=== PATIENT | female | born 2000 | race African-American/Black ===

== ENCOUNTER 2023-09-05 06:34 | Day surgery (SDC) | payer OTHER ==
[~2023-09-05] VITALS: Ht 160 cm; Wt 62.1 kg
[~2023-09-05 06:34] MED LIST: CETI10CA13 PO; CONC36TA4 PO; MONT-5 PO; PROA1AER2 IN
[2023-09-05] MEDS ORDERED: LR 1,000 ML IV SCH ×2 (07:05→10:25)
[2023-09-05] MEDS ORDERED: SUGAMMADEX SODIUM 500 MG/5 ML VIAL (BRIDION) As Ordered ONE (09:37)
[2023-09-05] MEDS ORDERED: propofoL 200 MG/20 ML VIAL As Ordered ONE (09:37)
[2023-09-05] MEDS ORDERED: ACETAMINOPHEN 1000MG 100ML IV BAG As Ordered ONE (09:37)
[2023-09-05] MEDS ORDERED: MIDAZOLAM INJ 2MG/2ML VIAL As Ordered ONE (09:37)
[2023-09-05] MEDS ORDERED: ONDANSETRON 4MG 2ML VIAL As Ordered ONE (09:37)
[2023-09-05] MEDS ORDERED: dexmedeTOMIDine (4MCG/ML)200MCG/50ML BTL (PRECEDEX) As Ordered ONE (09:37)
[2023-09-05] MEDS ORDERED: fentaNYL 250 MCG/5 ML INJECTION As Ordered ONE (09:37)
[2023-09-05] MEDS ORDERED: ROCURONIUM BROMIDE 50MG/5ML VIAL As Ordered ONE (09:37)
[2023-09-05] MEDS ORDERED: LIDOCAINE 2% 100MG/5ML SDV (FOR ANES.) As Ordered ONE (09:37)
[2023-09-05] MEDS ORDERED: GLYCOPYRROLATE INJ 0.2 MG/ML 2 ML VIAL As Ordered ONE (09:37)
[2023-09-05] MEDS ORDERED: HYDROmorphone HCL 2MG/ML 1ML VIAL As Ordered ONE (09:44)
[2023-09-05] MEDS ORDERED: oxyCODONE 5MG TAB PO PRN (10:25)
[2023-09-05] MEDS ORDERED: ONDANSETRON 4MG 2ML VIAL IV PRN (10:25)
[2023-09-05] MEDS ORDERED: HYDROMORPHONE HCL 0.5 MG/ 0.5 ML SYRINGE IV PRN (10:25)
[2023-09-05] MEDS ORDERED: fentaNYL 100 MCG/2 ML INJECTION IV PRN (10:25)
[2023-09-05 12:35] VITALS: BP 113/59; TEMP 97.1; O2SAT 98
== END 2023-09-05 12:46 | disposition home or self-care (01) ==
LOC: M SDC 06:34
PROVIDERS: ATTEND Otolaryngology
DX: J35.01 Chronic tonsillitis (principal); R19.6 Halitosis; F90.9 Attention-deficit hyperactivity disorder, unspecified type; J45.909 Unspecified asthma, uncomplicated; Z86.16 Personal history of COVID-19; Z79.899 Other long term (current) drug therapy
CPT/HCPCS: 42826; 81025; 88302; J0131; J1100; J1170; J2250; J2405; J3010

== ENCOUNTER → 2024-06-16 | Outpatient (REF) | payer OTHER ==
[2024-06-19 14:37] LABS: HPV APTIMA Not Detected (Not Detected)
== END ==
LOC: M SFHCWAGY 13:15
PROVIDERS: ATTEND Nurse Practitioner Family
DX: Z12.4 Encounter for screening for malignant neoplasm of cervix (principal)

== ENCOUNTER → 2025-07-28 | Outpatient (REF) | payer OTHER | LOC: M SFHCPLAZ 13:39 | PROVIDERS: ATTEND Family Medicine | DX: Z13.29 Encounter for screening for other suspected endocrine disorder (principal); Z13.6 Encounter for screening for cardiovascular disorders ==